=== PATIENT | female | born 1965 | race Caucasian/White ===

== ENCOUNTER 2019-05-16 04:09 | Emergency (ER) | payer OTHER ==
[~2019-05-16] VITALS: Ht 152.4 cm; Wt 82.1 kg
[2019-05-16 04:18] VITALS: BP 150/75
[2019-05-16] MEDS ORDERED: KETOROLAC 60 MG/2 ML VIAL IM ONE (04:35)
[2019-05-16] MEDS ORDERED: DICYCLOMINE HCL LIQUID 20 MG, ALUMINUM HYD/MAG/SIMETHICONE 30 ML, LIDOCAINE VISCOUS 2% ... PO ONE ×3 (04:35)
[2019-05-16] MEDS ORDERED: ONDANSETRON 4 MG TAB PO ONE (04:35)
[2019-05-16] MEDS ORDERED: MORPHINE SULFATE 4 MG/ML SYR IM ONE (05:30)
[2019-05-16 06:18] VITALS: BP 150/75
== END 2019-05-16 06:18 | disposition home or self-care (01) ==
LOC: MED 04:09
DX: R10.13 Epigastric pain (principal); R11.2 Nausea with vomiting, unspecified; Z98.890 Other specified postprocedural states
CPT/HCPCS: 81002; 81025; 96372; 99283; J1885; J2270; Q0162

== ENCOUNTER 2019-05-16 07:14 | Emergency (ER) | payer OTHER ==
[~2019-05-16] VITALS: Ht 152.4 cm; Wt 82.6 kg
[2019-05-16 07:22] VITALS: BP 130/86
[2019-05-16] MEDS ORDERED: KETOROLAC 30 MG/ML VIAL IVP ONE (08:20)
[2019-05-16 08:40] LABS: BASOPHILS % (AUTO) 0.3 % (0.0-2.0); EOSINOPHILS # (AUTO) 0.1 K/uL (0-0.4); EOSINOPHILS % (AUTO) 0.6 % (0.0-4.0); HEMATOCRIT 39.6 % (36-48); HEMOGLOBIN 13.1 g/dL (12.0-16.0); LYMPHOCYTES # (AUTO) 1.2 K/uL (2.5-16.5); LYMPHOCYTES % (AUTO) 11.5 % (20.5-51.1); MEAN CORPUSCULAR HEMOGLOBIN 30 pg (27-31); MEAN CORPUSCULAR HGB CONC 33 g/dL (33-37); MEAN CORPUSCULAR VOLUME 90.3 fL (80-94); MONOCYTES # (AUTO) 0.3 K/uL (0.8-1.0); NEUTROPHILS # (AUTO) 8.8 K/uL (1.8-7.7); NEUTROPHILS % (AUTO) 84.6 % (42.2-75.2); PLATELET COUNT (AUTO) 276 K/uL (140-450); RED BLOOD CELL COUNT(AUTO) 4.38 MIL/uL (4.20-5.40); RED CELL DISTRIBUTION WIDTH 13.5 % (11.6-13.7); WHITE BLOOD COUNT (AUTO) 10.4 K/uL (4.8-10.8)
[2019-05-16 08:46] LABS: ANION GAP 9.7 (8-16); CARBON DIOXIDE 30.5 mmol/L (21-32); CREATININE 0.7 mg/dL (0.6-1.3); POTASSIUM 4.2 mmol/L (3.5-5.1)
[2019-05-16 08:52] LABS: ALBUMIN 3.6 g/dL (3.4-5.0); TOTAL BILIRUBIN 0.4 mg/dL (0.0-1.0)
[2019-05-16 09:50] VITALS: BP 105/58
== END 2019-05-16 09:48 | disposition home or self-care (01) ==
LOC: MED 07:14
DX: K80.20 Calculus of gallbladder without cholecystitis without obstruction (principal)
CPT/HCPCS: 36415; 76705; 80053; 81002; 81025; 83690; 85025; 96374; 99284; J1885; Q0092

== ENCOUNTER 2020-04-09 19:25 | Inpatient (IN) | payer OTHER ==
[~2020-04-09] VITALS: Ht 149.9 cm; Wt 88.5 kg
[2020-04-09 20:03] VITALS: BP 148/81
[2020-04-09] MEDS ORDERED: KETOROLAC 30 MG/ML VIAL IM ONE (20:25)
[2020-04-09 20:41] LABS: BASOPHILS # (AUTO) 0.1 K/uL (0.00-0.22); BASOPHILS % (AUTO) 0.5 % (0.0-2.0); EOSINOPHILS # (AUTO) 0.4 K/uL (0-0.4); HEMATOCRIT 38.7 % (36-48); HEMOGLOBIN 12.6 g/dL (12.0-16.0); LYMPHOCYTES # (AUTO) 1.1 K/uL (2.5-16.5); LYMPHOCYTES % (AUTO) 8.6 % (20.5-51.1); MEAN CORPUSCULAR HEMOGLOBIN 30 pg (27-31); MEAN CORPUSCULAR HGB CONC 33 g/dL (33-37); MEAN CORPUSCULAR VOLUME 91.9 fL (80-94); MONOCYTES # (AUTO) 0.7 K/uL (0.8-1.0); MONOCYTES % (AUTO) 5.8 % (1.7-9.3); NEUTROPHILS # (AUTO) 10.5 K/uL (1.8-7.7); NEUTROPHILS % (AUTO) 82.1 % (42.2-75.2); PLATELET COUNT (AUTO) 254 K/uL (140-450); RED BLOOD CELL COUNT(AUTO) 4.21 MIL/uL (4.20-5.40); RED CELL DISTRIBUTION WIDTH 13.6 % (11.6-13.7); WHITE BLOOD COUNT (AUTO) 12.8 K/uL (4.8-10.8)
--- NOTE | 2020-04-09 20:53 | NUR ---
PT TAKEN TO ULTRASOUND
[2020-04-09 20:58] LABS: ALBUMIN 3.5 g/dL (3.4-5.0); ANION GAP 10.7 (8-16); CARBON DIOXIDE 29.3 mmol/L (21-32); CREATININE 0.8 mg/dL (0.6-1.3); TOTAL BILIRUBIN 0.8 mg/dL (0.0-1.0)
--- NOTE | 2020-04-09 21:00 | NUR ---
55F PT PRESENTS TO ED WITH C/O RUQ ABD PAIN THAT STARTED X 3 DAYS. PT REPORTS IT IS NON RADIATING AND 10/10 PAIN. UPON PALPATION, PT ABDOMEN SOFT AND NON TENDER. +PETERSON'S SIGN. DENIES N/V/D. DENIES SOB/COUGH. DENIES HEADACHE. RESPIRATIONS EVEN AND UNLABORED. CBL SOUNDS. A/O X4 AND AMBULATORY. PMHX: HLD, CHOLECYSTITIS RX: DENIES NKA
--- NOTE | 2020-04-09 21:00 | NUR ---
PT MEDICATED WITH TORADOL IM. TOLERATED WELL. NADR
--- NOTE | 2020-04-09 21:12 | NUR ---
PT RETURN FROM ULTRASOUND
--- NOTE | 2020-04-09 21:58 | NUR ---
Dr. Simpson examining patient.
[2020-04-09] MEDS ORDERED: KETOROLAC 15 MG/ML VIAL ONE ×2 (22:48→22:49)
--- NOTE | 2020-04-09 23:10 | NUR ---
PT REPORTS DECREASED PAIN FROM 10/10 TO 3/10 AND TOLERABLE. NO FURTHER NEEDS AT THIS TIME.
--- NOTE | 2020-04-10 00:25 | NUR ---
PT WILL BE ADMITTED TO TELEMETRY UNDER DR JAHAIRA DURAND.
--- NOTE | 2020-04-10 00:53 | NUR ---
PT IN BED SLEEPING. VISIBLE CHEST RISE AND FALL. NO FURTHER NEEDS AT THIS TIME. HOB ELEVATED . BED LOWEST AND LOCKED, RAILS X 2.
[2020-04-10] MEDS ORDERED: HYDROcodone/APAP 10/325 MG 1 TAB TAB PO ONE (01:55)
--- NOTE | 2020-04-10 02:24 | NUR ---
PT MADE AWARE THAT SHE WILL BE ADMITTED AND SHE VERBALIZES UNDERSTANDING. PT ALSO MADE AWARE AND AGREED.
[2020-04-10] MEDS ORDERED: NAPR-54 PO (02:28)
[2020-04-10] MEDS ORDERED: HYDR-5122 PO (02:28)
--- NOTE | 2020-04-10 03:14 | NUR ---
PT MOVED TO ER BED 11
--- NOTE | 2020-04-10 03:33 | NUR ---
PT PLACED ON CARDIAC MONITORING.
[2020-04-10] MEDS ORDERED: NACL 0.9% 1,000 ML IV ONE (05:15)
--- NOTE | 2020-04-10 05:15 | NUR ---
PT REPORTS FEELING OF DIZINESS 2/. ERMD MADE AWARE. ADVISED TO GIVE NS BOLUS.
--- NOTE | 2020-04-10 06:14 | NUR ---
PT IN BED SLEEPING WITH BOLUS RUNNING. NO FURTHER NEEDS AT THIS TIME. VISIBLE CHEST RISE AND FALL.
--- NOTE | 2020-04-10 07:12 | NUR ---
PT AMBULATED TO RESTROOM WITH STEADY GAIT
--- NOTE | 2020-04-10 07:34 | NUR ---
Patient will be admitted to care of DR. RENTERIA. Admited to TELE. Will go to room 111. Belongings list completed. Report to ALICIA POE.
[2020-04-10 07:35] VITALS: BP 120/83
--- NOTE | 2020-04-10 07:35 | NUR ---
RECEIVED REPORT FROM ER NURSE. PT RESTING IN BED, AOX4- LEBANESE/TAMAZIGHT SPEAKING. ON ROOM AIR WITH RIGHT AC #18G/SL. PT ARRIVED VIA GURNEY. DISCUSSED PLAN OF CARE AND PT VERBALIZED UNDERSTANDING. MRSA NARES COLLECTED. CALL LIGHT WITHIN REACH. NO S/S OF RESPIRATORY DISTRESS OR DISCOMFORT NOTED AT THIS TIME. WILL CONTINUE TO MONITOR.
[2020-04-10] MEDS ORDERED: MORPHINE SULFATE 2 MG/ML SYR IVP PRN (08:15)
[2020-04-10] MEDS ORDERED: ACETAMINOPHEN 325 MG TAB PO PRN (08:15)
[2020-04-10] MEDS: MORPHINE SULFATE 2 MG/ML SYR IVP PRN ×3 (08:39→19:05)
--- NOTE | 2020-04-10 08:39 | NUR ---
PT C/O PAIN 10/10 AND MORPHINE GIVEN AND TOLERATED WELL. PT ALSO C/O NAUSEA AND ZOFRAN GIVEN. CALL LIGHT WITHIN REACH. NO S/S OF RESPIRATORY DISTRESS OR DISCOMFORT NOTED AT THIS TIME. WILL CONTINUE TO MONITOR.
[2020-04-10] MEDS: ONDANSETRON 4 MG/2 ML VIAL IVP PRN ×2 (08:40→16:18)
--- NOTE | 2020-04-10 09:23 | NUR ---
PATIENT HAS BEEN SCREENED AND CATEGORIZED MODERATE NUTRITION RISK. PATIENT WILL BE SEEN WITHIN 3-5 DAYS OF ADMISSION. 04/12/20 04/14/[address]
[2020-04-10] MEDS: HYDROcodone/APAP 5/325 MG 1 TAB TAB PO PRN ×3 (09:57→22:51)
--- NOTE | 2020-04-10 09:57 | NUR ---
PT CONTINUES TO C/O PAIN AND NORCO GIVEN. PT TOLERATED WELL. CALL LIGHT WITHIN REACH. NO S/S OF RESPIRATORY DISTRESS OR DISCOMFORT NOTED AT THIS TIME. WILL CONTINUE TO MONITOR.
--- NOTE | 2020-04-10 10:43 | NUR ---
DC PLANN[age] YRS OLD FEMALE PATIENT WAS ADMITTED FROM HOME WITH A DX OF ABDOMINAL PAIN. PT HAS A HX OF GALL STONES. ULTRA SOUND GALLBLADDER SHOWED CHOLELITHIASIS SUSPICIOUS FOR ACUTE CHOLECYSTITIS. ADMINISTER IVF , MORPHINE IV FOR PAIN. CONSULT WITH SURGEON. DC PLAN PER MD'S RECOMMENDATIONS. CM TO FOLLOW. Addendum: 04/11/20 at 1146 by Rafaela Munoz CM FOR LAP NILS TODAY WITH DR POLLARD AT 1400. ON ZOSYN. Addendum: 04/12/20 at 1136 by Rafaela Munoz CM S/P LAP NILS WITH ROSANNA DRAIN 04/11/[address] PONCE. CURRENT LABS INCLUDE WBC 17.9, H/H 11.1/34.2, NA/K 141/4.0, BUN/CREA 13/0.7. ON ZOSYN. ON FULL LIQUID DIET. Addendum: 04/12/20 at 1448 by Ladi iLu CM SPOKE WITH RAMSEY AT PATIENTS PCP OFFICE. SCHEDULED A FOLLOW UP APPT ON Friday AT 12:[address] ANDREW. [address] [facility] [address] [phone]. WILL LEAVE AN APPOINTMENT REMINDER IN PATIENTS CHART AND NOTIFY RN Addendum: 04/13/20 at 1241 by Rafaela Munoz CM DOWNGRADED TO MS STATUS YESTERDAY 04/12 AT 1555. ON FULL LIQUID DIET. WBC TRENDING DOWN TO 12.9. ABLE TO AMBULATE. STILL ON ZOSYN. STILL WITH ON AND OFF PAIN PER DOCUMENTATION. FOR POSSIBLE DC HOME TODAY PENDING DOCTOR'S ORDER.
--- NOTE | 2020-04-10 12:00 | NUR ---
PT SLEEPING. CALL LIGHT WITHIN REACH. NO S/S OF RESPIRATORY DISTRESS OR DISCOMFORT NOTED AT THIS TIME. WILL CONTINUE TO MONITOR.
--- NOTE | 2020-04-10 13:43 | NUR ---
PT C/O PAIN AND MORPHINE GIVEN. PT TOLERATED WELL. CALL LIGHT WITHIN REACH. NO S/S OF RESPIRATORY DISTRESS OR DISCOMFORT NOTED AT THIS TIME. WILL CONTINUE TO MONITOR.
[2020-04-10 16:00] VITALS: BP 130/62
--- NOTE | 2020-04-10 16:18 | NUR ---
PT C/O PAIN AND NAUSEA. NORCO AND ZOFRAN GIVEN AND TOLERATED WELL. CALL LIGHT WITHIN REACH. NO S/S OF RESPIRATORY DISTRESS OR DISCOMFORT NOTED AT THIS TIME. WILL CONTINUE TO MONITOR.
--- NOTE | 2020-04-10 18:00 | NUR ---
PT SLEEPING IN BED. CALL LIGHT WITHIN REACH. NO S/S OF RESPIRATORY DISTRESS OR DISCOMFORT NOTED AT THIS TIME. WILL CONTINUE TO MONITOR.
--- NOTE | 2020-04-10 19:05 | NUR ---
PT C/O PAIN 10/10 AND MEDICATED WITH MORPHINE. WILL HAVE MANAGER QUALITY SYSTEMS NURSE RE-ASSESS PAIN IN ONE HOUR. CALL LIGHT WITHIN REACH. NO S/S OF RESPIRATORY DISTRESS OR DISCOMFORT NOTED AT THIS TIME. WILL CONTINUE TO MONITOR.
--- NOTE | 2020-04-10 19:18 | NUR ---
RECEIVED PT AAOX4 , NID , C/O BEARBLE ABDL. PAIN - SOFT ABD. IV SITE INTACT AND PATENT , NO S/SX OF ACUTE DISTRESS NOTED . PLAN OF CARE DISCUSSED AND VERBALIZED UNDERSTANDING , SAFETY MEASURES IN PLACE - CALL LIGHT WITHIN REACH . NPO , ON TELE MONITOR.
[2020-04-10 20:00] VITALS: BP 115/65
--- NOTE | 2020-04-10 22:00 | NUR ---
MADE ROUNDS , NO S/SX OF ACUTE DISTRESS NOTED
[2020-04-11] VITALS: BP 120/82
--- NOTE | 2020-04-11 | NUR ---
MADE ROUNDS . NO S/SX OF ACUTE DISTRESS NOTED
--- NOTE | 2020-04-11 02:00 | NUR ---
MADE ROUNDS , NO S/SX OF ACUTE DISTRESS NOTED .
[2020-04-11] MEDS: ONDANSETRON 4 MG/2 ML VIAL IVP PRN ×2 (02:14→08:39)
[2020-04-11] MEDS: MORPHINE SULFATE 2 MG/ML SYR IVP PRN ×3 (02:14→21:44)
[2020-04-11 04:00] VITALS: BP 118/69
--- NOTE | 2020-04-11 04:00 | NUR ---
MADE ROUNDS , C/O ABDL . PAIN - BEARABLE SHE SAID - JUST MEDICATED - WILL CONT. TO MONITOR - SOFT ABD.
[2020-04-11] MEDS ORDERED: PIPERACILLIN/TAZOBACTAM 3.375 GM VIAL IV ONE ×2 (04:29→13:18)
[2020-04-11] MEDS: PIPERACILLIN/TAZOBACTAM 3.375 GM in DEXTROSE 5% 50 ML IV SCH ×3 (04:36→21:44)
[2020-04-11 07:07] LABS: BASOPHILS # (AUTO) 0.2 K/uL (0.00-0.22); BASOPHILS % (AUTO) 0.7 % (0.0-2.0); EOSINOPHILS # (AUTO) 0.1 K/uL (0-0.4); EOSINOPHILS % (AUTO) 0.2 % (0.0-4.0); HEMATOCRIT 41.1 % (36-48); HEMOGLOBIN 13.2 g/dL (12.0-16.0); LYMPHOCYTES % (AUTO) 4.1 % (20.5-51.1); MEAN CORPUSCULAR HEMOGLOBIN 30 pg (27-31); MEAN CORPUSCULAR HGB CONC 32 g/dL (33-37); MEAN CORPUSCULAR VOLUME 92.6 fL (80-94); MONOCYTES # (AUTO) 1.1 K/uL (0.8-1.0); MONOCYTES % (AUTO) 4.6 % (1.7-9.3); NEUTROPHILS # (AUTO) 22.2 K/uL (1.8-7.7); NEUTROPHILS % (AUTO) 90.4 % (42.2-75.2); PLATELET COUNT (AUTO) 268 K/uL (140-450); RED BLOOD CELL COUNT(AUTO) 4.44 MIL/uL (4.20-5.40); RED CELL DISTRIBUTION WIDTH 13.9 % (11.6-13.7); WHITE BLOOD COUNT (AUTO) 24.5 K/uL (4.8-10.8)
[2020-04-11 07:16] LABS: ALBUMIN 3.1 g/dL (3.4-5.0); CARBON DIOXIDE 29.5 mmol/L (21-32); CREATININE 0.9 mg/dL (0.6-1.3); POTASSIUM 3.5 mmol/L (3.5-5.1); TOTAL BILIRUBIN 1.1 mg/dL (0.0-1.0)
--- NOTE | 2020-04-11 07:20 | NUR ---
RECEIVED REPORT FROM NIGHT NURSE FOR CONTINUITY OF CARE, PT IS STABLE, NO SIGNS OF DISTRESS NOTED, RESPIRATIONS ARE EVEN AND UNLABORED ON ROOM AIR, PT HAS RIGHT AC 18G INFUSING NORMAL SALINE TKO, PT IS AMBULATORY, BED IN LOW POSITION, SAFETY MEASURES IN PLACE, CALL LIGHT WITHIN REACH.
--- NOTE | 2020-04-11 07:20 | NUR ---
ENDORSED TO AM SHIFT - PT - STABLE .
[2020-04-11 08:00] VITALS: BP 116/65
--- NOTE | 2020-04-11 08:30 | NUR ---
RECEIVED TORB FOR CT ABD/PELVIS STAT FOR PT FROM DR PONCE, PT WILL BE SCHEDULED FOR SURGERY TODAY. ORDERED TO KEEP PT NPO
--- NOTE | 2020-04-11 08:43 | NUR ---
ADMINISTERED ZOFRAN FOR NAUSEA AND MORPHINE FOR PAIN OF 9/10 SHARP ABDOMINAL PAIN, MEDICATION EDUCATION GIVEN, PT VERBALIZED UNDERSTANDING, PT TOLERATED WELL, PT IS STABLE, CALL LIGHT WITHIN REACH.
[2020-04-11] MEDS: HYDROcodone/APAP 5/325 MG 1 TAB TAB PO PRN (11:00)
--- NOTE | 2020-04-11 11:02 | NUR ---
ADMINISTERED NORCO FOR PAIN 6/10 FOR ABDOMINAL PAIN, MEDICATION EDUCATION GIVEN, PT VERBALIZED UNDERSTANDING, PT TOLERATED WELL, PT IS STABLE, CALL LIGHT WITHIN REACH.
[2020-04-11 12:00] VITALS: BP 108/57
[2020-04-11] MEDS ORDERED: diphenhydrAMINE 50 MG/ML VIAL IVP PRN (13:00)
[2020-04-11] MEDS ORDERED: ONDANSETRON 4 MG/2 ML VIAL IVP PRN (13:00)
--- NOTE | 2020-04-11 13:01 | NUR ---
PT OFF UNIT FOR SURGERY
[2020-04-11] MEDS ORDERED: SUGAMMADEX SODIUM 200 MG/2 ML VIAL IV ONE (13:46)
[2020-04-11] MEDS ORDERED: ROCURONIUM 50 MG/5 ML VIAL IV ONE (13:46)
[2020-04-11] MEDS ORDERED: ONDANSETRON 4 MG/2 ML VIAL ONE (13:46)
[2020-04-11] MEDS ORDERED: DESFLURANE 240 ML BTL INH ONE (13:46)
[2020-04-11] MEDS ORDERED: NEOSTIGMINE 1:1000 10 MG/10 ML VIAL ONE (13:46)
[2020-04-11] MEDS ORDERED: ePHEDrine 50 MG/ML VIAL ONE (13:46)
[2020-04-11] MEDS ORDERED: PROPOFOL 200 MG/20 ML VIAL IV ONE (13:46)
[2020-04-11] MEDS ORDERED: SUCCINYLCHOLINE CHLORIDE 200 MG/10 ML VIAL IVP ONE (13:46)
[2020-04-11] MEDS ORDERED: DEXAMETHASONE 4 MG/ML VIAL ONE (13:46)
[2020-04-11] MEDS: BUPIVACAINE-MPF/EPI 0.25% 30 ML VIAL INJ ONE ×2 (14:21→16:35)
[2020-04-11] MEDS ORDERED: ONDANSETRON 4 MG/2 ML VIAL IV PRN (16:25)
[2020-04-11] MEDS ORDERED: HYDROcodone/APAP 5/325 MG 1 TAB TAB PO PRN (16:25)
[2020-04-11] MEDS ORDERED: ACETAMINOPHEN 325 MG TAB PO PRN (16:25)
[2020-04-11] MEDS: HYDROmorphone 1 MG/ML AMP IVP PRN ×5 (16:30→17:56)
[2020-04-11] MEDS ORDERED: HYDROmorphone PFS 2 MG/ML SYR ONE (16:33)
[2020-04-11] MEDS ORDERED: MEPERIDINE 50 MG/ML SYR ONE (17:04)
[2020-04-11] MEDS: MEPERIDINE 25 MG/ML SYR IVP PRN ×2 (17:05→17:15)
--- NOTE | 2020-04-11 17:20 | NUR ---
PT BACK FROM OR S/P LAP TRE, 3 BANDAGES ON ABD, ROSANNA DRAIN IN PLACE, FLORENTINO CATH IN PLACE, PT IS STABLE, RESPIRATIONS ARE EVEN AND UNLABORED ON ROOM AIR, CALL LIGHT WITHIN REACH.
--- NOTE | 2020-04-11 17:56 | NUR ---
ADMINISTERED DILAUDID FOR PAIN OF 8/10, PT STATES THE PAIN IS FROM THE SURGERY, MEDICATION EDUCATION GIVEN, PT TOLERATED WELL, PT IS STABLE, CALL LIGHT WITHIN REACH
--- NOTE | 2020-04-11 19:10 | NUR ---
ENDORSE PT TO NIGHT NURSE FOR CONTINUITY OF CARE, PT STABLE
--- NOTE | 2020-04-11 19:10 | NUR ---
RECEIVED REPORT FROM AM SHIFT NURSE FOR CONTINUITY OF CARE. PATIENT IS ON ROOM AIR WITH 02 SAT AT 97%. SHE HAS A FLORENTINO CATHETER IN PLACE AND A ROSANNA DRAIN IN PLACE WITH BANDAGE IN PLACE. PATIENT IS ALERT AND ORIENTED X4. SHE HAS VOICED SLIGHT DISCOMFORT TO ABDOMEN INCISION SITE BUT STATES IT IS TOLERABLE AT THIS TIME. PATIENT WILL CONTINUE TO BE MONITORED. CALL LIGHT WITHIN REACH AND BED IN LOW POSITION. RESP EVEN AND UNLABORED AT THIS TIME.
--- NOTE | 2020-04-11 19:11 | NUR ---
RECD. RESTING IN BED, AWAKE, A/OX4. RESPIRATION EVEN AND UNLABORED. IV OF NS INFUSING AT TKO, RIGHT AC G18. S/P LAP CHOLECYSTECTOMY, INCISION IN THE ABDOMEN (4), 2 WITH BAND AID, 2 DERMA DIAL, OPEN TO AIR. 1 ROSANNA DRESSING DRAINING SEROSANGUINEOUS FLUID MINIMAL AMOUNT. F/C PATENT DRAINING CLEAR YELLOW URINE. PAIN IN THE ABDOMEN 10/22, TOLERABLE. WILL BE MEDICATED PER MD ORDER. NPO AT THIS TIME. PLAN OF CARE FOR THE SHIFT DISCUSSED. VERBALIZED UNDERSTANDING.
--- NOTE | 2020-04-11 21:00 | NUR ---
STILL AWAKE, WATCHING TV. NPO, SMALL AMOUNT OF ICE CHIPS GIVEN TO MOISTEN LIPS.
[2020-04-11 21:41] VITALS: BP 119/65
--- NOTE | 2020-04-12 | NUR ---
TOLERATED ALL ANTIBIOTICS GIVEN BY RN. VS REMAIN STABLE.
[2020-04-12 00:50] VITALS: BP 110/65
[2020-04-12] MEDS: HYDROmorphone 1 MG/ML AMP IVP PRN (01:10)
[2020-04-12] MEDS: ONDANSETRON 4 MG/2 ML VIAL IVP PRN ×2 (01:11→09:16)
--- NOTE | 2020-04-12 01:11 | NUR ---
NAUSEATED, MEDICATED WITH ZOFRAN PER MD ORDER BY LUI CONNER.
--- NOTE | 2020-04-12 01:45 | NUR ---
NO NAUSEA NOTED, SLEEPING COMFORTABLY IN BED.
[2020-04-12 04:00] VITALS: BP 112/56
[2020-04-12] MEDS: HYDROcodone/APAP 5/325 MG 1 TAB TAB PO PRN ×3 (05:35→23:34)
[2020-04-12] MEDS: PIPERACILLIN/TAZOBACTAM 3.375 GM in DEXTROSE 5% 50 ML IV SCH ×3 (05:56→20:18)
--- NOTE | 2020-04-12 06:00 | NUR ---
IV INFILTRATED, WILL INSERT NEW IV LINE.
[2020-04-12 06:23] LABS: HEMATOCRIT 34.2 % (36-48); HEMOGLOBIN 11.1 g/dL (12.0-16.0); MEAN CORPUSCULAR HEMOGLOBIN 30 pg (27-31); MEAN CORPUSCULAR HGB CONC 33 g/dL (33-37); MEAN CORPUSCULAR VOLUME 92.8 fL (80-94); PLATELET COUNT (AUTO) 259 K/uL (140-450); RED BLOOD CELL COUNT(AUTO) 3.68 MIL/uL (4.20-5.40); RED CELL DISTRIBUTION WIDTH 13.7 % (11.6-13.7); WHITE BLOOD COUNT (AUTO) 17.9 K/uL (4.8-10.8)
[2020-04-12 06:52] LABS: ALBUMIN 2.5 g/dL (3.4-5.0); ANION GAP 12.5 (8-16); CARBON DIOXIDE 28.5 mmol/L (21-32); CREATININE 0.7 mg/dL (0.6-1.3); TOTAL BILIRUBIN 0.5 mg/dL (0.0-1.0)
--- NOTE | 2020-04-12 07:00 | NUR ---
CONDITION REMAIN STABLE, WILL ENDORSE TO AM SHIFT NURSE FOR CONTINUITY OF CARE.
--- NOTE | 2020-04-12 07:51 | NUR ---
RECEIVED REPORT FROM PROOF TECHNICIAN HELPER NURSE. PT IS IN BED. AOX4, SERBIAN SPEAKING, NO C/O PAIN, NO SOB, RESPIRATIONS ARE EVEN AND UNLABORED. ON ROOM AIR. SKIN IS INTACT. ROSANNA DRAIN IS INTACT WITH SEROSANGUINEOUS FLUID. SAFETY PRECAUTIONS IN PLACE. CALL LIGHT WITHIN REACH. WILL CONTINUE TO MONITOR.
[2020-04-12 08:00] VITALS: BP 114/58
[2020-04-12] MEDS: ENOXAPARIN 40 MG/0.4 ML SYR SUBQ SCH (09:16)
[2020-04-12] MEDS: MORPHINE SULFATE 2 MG/ML SYR IVP PRN ×3 (09:16→19:53)
[2020-04-12 09:20] LABS: LYMPHOCYTES % (MANUAL) 7 % (20-46); MONOCYTES % (MANUAL) 4 % (5-12)
--- NOTE | 2020-04-12 09:50 | NUR ---
RECEIVED REPORT FROM DAY SHIFT NURSE KATE-LUI. PT RESTING IN BED, AOX4- FRENCH SPEAKING, ON ROOM AIR WITH RIGHT HAND #24 RUNNING NS @10ML/HR. S/P LAP NILS 04/[address] DANIEL MARTE DRAIN IN PLACE. DISCUSSED PLAN OF CARE AND PT VERBALIZED UNDERSTANDING. CALL LIGHT WITHIN REACH. NO S/S OF RESPIRATORY DISTRESS OR DISCOMFORT NOTED AT THIS TIME. WILL CONTINUE TO MONITOR.
--- NOTE | 2020-04-12 09:50 | NUR ---
GAVE REPORT TO NURSE ALICIA FOR CONTINUITY OF CARE. IN STABLE CONDITION
--- NOTE | 2020-04-12 12:00 | NUR ---
PT RESTING IN BED. ASSISTED PT WITH THE BATHROOM. AMBULATED WITH ASSISTANCE. PT TOLERATED WELL. CALL LIGHT WITHIN REACH. NO S/S OF RESPIRATORY DISTRESS OR DISCOMFORT NOTED AT THIS TIME. WILL CONTINUE TO MONITOR.
--- NOTE | 2020-04-12 13:10 | NUR ---
SCHEDULED MEDICATION ZOSYN GIVEN AND TOLERATED WELL. PT C/O PAIN 10/10 AND MORPHINE WAS GIVEN. PT TOLERATED WELL. REMOVED FLORENTINO CATHETER WITH 400ML OUTPUT. PT TOLERATED WELL. CALL LIGHT WITHIN REACH. NO S/S OF RESPIRATORY DISTRESS OR DISCOMFORT NOTED AT THIS TIME. WILL CONTINUE TO MONITOR.
--- NOTE | 2020-04-12 15:00 | NUR ---
PT RESTING IN BED. CALL LIGHT WITHIN REACH. NO S/S OF RESPIRATORY DISTRESS OR DISCOMFORT NOTED AT THIS TIME. WILL CONTINUE TO MONITOR.
[2020-04-12 16:00] VITALS: BP 117/60
--- NOTE | 2020-04-12 17:00 | NUR ---
PT RESTING IN BED. CALL LIGHT WITHIN REACH. NO S/S OF RESPIRATORY DISTRESS OR DISCOMFORT NOTED AT THIS TIME. WILL CONTINUE TO MONITOR.
--- NOTE | 2020-04-12 19:24 | NUR ---
REPORT GIVEN TO TON FOR CONTINUITY OF CARE. PT STABLE AT THIS TIME.
--- NOTE | 2020-04-12 19:25 | NUR ---
RECD. RESTING IN BED, AWAKE, A/OX4. RESPIRATION EVEN AND UNLABORED. IV OF NS AT TKO INFUSING RIGHT HAND G24. INCISION IN THE ABDOMEN (4), ALL DRY AND INTACT, WITH 1 ROSANNA DRAINING SEROSANGUINEOUS FLUID, MINIMAL AMOUNT. ON FULL LIQUID DIET BUT STATED SHE PREFERS CLEAR LIQUID BECAUSE THE FULL LIQUID DIET MAKES HER FEEL FULLNESS INSIDE HIS STOMACH. VOIDING WELL. PAIN IN THE ABDOMEN 10/22, STATED TOLERABLE. PLAN OF CARE FOR THE SHIFT DISCUSSED. VERBALIZED UNDERSTANDING.
[2020-04-12 19:44] VITALS: BP 123/70
--- NOTE | 2020-04-12 20:00 | NUR ---
WITNESSED WASTING OF MORPHINE FOR PT WITH PA CASTER INVESTMENT CASTING NURSE.
--- NOTE | 2020-04-12 20:32 | NUR ---
WHILE GIVING PATIENT PRN MORPHINE MEDICATION, WHILE TAKING CAP OFF, THE PLUNGER WAS PUSHED AND HALF OF THE MEDICATION IS WASTED. WASTED THE REMAINING HALF WITH PRECEPTOR LUI SOLORIO. PULLED A NEW VIAL TO GIVE PATIENT THE FULL PRN MEDICATED DOSE.
--- NOTE | 2020-04-12 21:30 | NUR ---
DISCUSSED CARE PLAN WITH ALBA LEDESMA
--- NOTE | 2020-04-12 23:30 | NUR ---
WANTS PAIN MEDICATION, NORCO GIVEN INSTEAD OF MORPHINE. EXPLAINED WHEN SHE GOES HOME, IT WOULD BE EASY FOR HER IF SHE IS NOT ALWAYS GETTING MORPHINE FOR PAIN WHILE IN THE HOSPITAL.
[2020-04-13] VITALS: BP 102/65
--- NOTE | 2020-04-13 02:30 | NUR ---
ASSISTED TO GO OUT OF BED TO GO TO THE BR. STATED SHE VOIDED A LOT. BACK TO BED AFTER VOIDING. NOT YET PASSING GAS AND NO BM YET. ENCOURAGED TO AMBULATE MORE FOR EASY RECOVERY.
[2020-04-13 02:46] VITALS: BP 116/54
[2020-04-13] MEDS: MORPHINE SULFATE 2 MG/ML SYR IVP PRN ×2 (02:54→07:47)
--- NOTE | 2020-04-13 03:00 | NUR ---
STILL SLEEPING COMFORTABLY IN BED.
[2020-04-13] MEDS: PIPERACILLIN/TAZOBACTAM 3.375 GM in DEXTROSE 5% 50 ML IV SCH ×2 (05:02→12:38)
--- NOTE | 2020-04-13 06:00 | NUR ---
CONDITION REMAIN STABLE.COMPLAINT OF ABDOMINAL PAIN ATTENDED PROMPTLY, MEDICATED ORDERED.
[2020-04-13 06:22] LABS: BASOPHILS % (AUTO) 0.3 % (0.0-2.0); EOSINOPHILS # (AUTO) 0.5 K/uL (0-0.4); EOSINOPHILS % (AUTO) 4.1 % (0.0-4.0); HEMATOCRIT 32.5 % (36-48); HEMOGLOBIN 10.6 g/dL (12.0-16.0); LYMPHOCYTES # (AUTO) 1.6 K/uL (2.5-16.5); LYMPHOCYTES % (AUTO) 12.8 % (20.5-51.1); MEAN CORPUSCULAR HEMOGLOBIN 30 pg (27-31); MEAN CORPUSCULAR HGB CONC 33 g/dL (33-37); MEAN CORPUSCULAR VOLUME 92.6 fL (80-94); MONOCYTES # (AUTO) 0.8 K/uL (0.8-1.0); MONOCYTES % (AUTO) 5.9 % (1.7-9.3); NEUTROPHILS # (AUTO) 9.9 K/uL (1.8-7.7); NEUTROPHILS % (AUTO) 76.9 % (42.2-75.2); PLATELET COUNT (AUTO) 296 K/uL (140-450); RED BLOOD CELL COUNT(AUTO) 3.51 MIL/uL (4.20-5.40); RED CELL DISTRIBUTION WIDTH 13.8 % (11.6-13.7); WHITE BLOOD COUNT (AUTO) 12.9 K/uL (4.8-10.8)
[2020-04-13 07:13] LABS: ALBUMIN 2.2 g/dL (3.4-5.0); CARBON DIOXIDE 30.7 mmol/L (21-32); CREATININE 0.7 mg/dL (0.6-1.3); POTASSIUM 3.7 mmol/L (3.5-5.1); TOTAL BILIRUBIN 0.4 mg/dL (0.0-1.0)
--- NOTE | 2020-04-13 07:25 | NUR ---
ENDORSED TO AM SHIFT NURSE FOR CONTINUITY OF CARE.
--- NOTE | 2020-04-13 07:25 | NUR ---
RECEIVED PATIENT FROM RESTAURANT CULINARY MANAGER NURSE, ALBA, FOR CONTINUITY OF CARE. AAOX4, PATIENT COMPLAINS OF PAIN 10/10 FROM SURGICAL INCISION. WILL MEDICATE. RESPIRATION EVEN AND UNLABORED, WITH O2 AT 2LPM VIA NC. IV OF NS AT TKO INFUSING RIGHT HAND G24. INCISION IN THE ABDOMEN (4), ALL DRY AND INTACT, WITH 1 ROSANNA DRAINING SEROSANGUINEOUS FLUID, MINIMAL AMOUNT. ON FULL LIQUID DIET BUT STATED SHE PREFERS CLEAR LIQUID BECAUSE THE FULL LIQUID DIET MAKES HER FEEL FULLNESS INSIDE HIS STOMACH. VOIDING WELL. PAIN IN THE ABDOMEN 1/10, STATED TOLERABLE. PLAN OF CARE FOR THE SHIFT DISCUSSED. VERBALIZED UNDERSTANDING. CALL LIGHT WITHIN REACH. WILL CONTINUE TO MONITOR.
--- NOTE | 2020-04-13 07:47 | NUR ---
MEDICATED PATIENT WITH MORPHINE 2MG FOR INCISION PAIN 10/. PATIENT IS VISIBLY MOANING AND GUARDING. V/S TAKEN AND IS WNL. BP 133/71, HR 75. WILL CONTINUE TO MONITOR.
[2020-04-13 08:00] VITALS: BP 133/71
[2020-04-13] MEDS ORDERED: SIMETHICONE 40 MG/0.6 ML PO PRN (08:30)
--- NOTE | 2020-04-13 08:30 | NUR ---
PATIENT REQUESTS MEDICATION FOR GAS. ENCOURAGED PATIENT TO AMBULATE AND PERFORM DEEP BREATHING TO PASS GAS. PATIENT UNDERSTANDS BUT IS HESITANT TO MOVE D/T PAIN. EXPLAINED THAT PAIN MEDICATION IS ALREADY GIVEN. PATIENT AGREES TO AMBULATE AFTER AN HOUR.
[2020-04-13] MEDS ORDERED: SIMETHICONE 80 MG TAB.CHEW PO SCH (09:00)
[2020-04-13] MEDS: ENOXAPARIN 40 MG/0.4 ML SYR SUBQ SCH (09:11)
--- NOTE | 2020-04-13 09:15 | NUR ---
MORNING MEDICATIONS GIVEN. PATIENT IS SEEMS TO BE MORE RELAXED. NO SIGNS OF DISTRESS. WILL CONTINUE TO MONITOR.
--- NOTE | 2020-04-13 09:30 | NUR ---
AMBULATED PATIENT OUT OF PATIENT'S ROOM. PATIENT IS IN SEVERE DISCOMFORT AND WAS ABLE TO AMBULATE FOR 5 FEET. WILL MEDICATE WITH PAIN. WILL CONTINUE TO MONITOR.
[2020-04-13 12:00] VITALS: BP 137/76
--- NOTE | 2020-04-13 14:02 | NUR ---
DR. PONCE BY THE BEDSIDE, ROSANNA DRAINAGE REMOVED, 5ML OUTPUT WITH SEROSANGUINOUS DISCHARGE. NO SIGNS OF DISTRESS NOTED. WILL CONTINUE TO MONITOR.
[2020-04-13] MEDS ORDERED: CIPR500T4 PO (14:25)
[2020-04-13] MEDS ORDERED: METR250T2 PO (14:25)
[2020-04-13] MEDS ORDERED: ACET-9525 PO (14:25)
--- NOTE | 2020-04-13 15:01 | NUR ---
04/13/20 RD INITIAL ASSESSMENT COMPLETED PLEASE REFER TO NUTRITION ASSESSMENT UNDER CARE ACTIVITY FOR ESTIMATED NUTRITIONAL NEEDS. 1. CONTINUE FULL LIQUID DIET TOLERATED 2. RECOMMEND ENSURE CLEAR TID 3. ADVANCE TO BRAT OR BLAND DIET GRADUALLY 4. RD TO FOLLOW-UP 3-5 DAYS, MODERATE RISK MICHAEL MONTEZ, RD
[2020-04-13 15:04] VITALS: BP 137/76
--- NOTE | 2020-04-13 15:20 | NUR ---
IV SITE AND ARMBANDS REMOVED. DISCHARGE INSTRUCTIONS AND HANDOUTS GIVEN, PATIENT VERBALIZES UNDERSTANDING. ATTEMPTED TO TAKE DISCHARGE PICTURES OF SURGICAL INCISION BUT PATIENT REFUSED STATING WANTING TO LEAVE IMMEDIATELY. WILL CONTINUE TO MONITOR.
--- NOTE | 2020-04-13 15:40 | NUR ---
PATIENT IS DISCHARGED TO HOME WITH SPOUSE. NO SIGNS OF DISTRESS NOTED, PATIENT ABLE TO AMBULATE FDC BUT IS WHEELED TOWARDS LOBBY DUE TO FATIGUE. IV SITE AND ARMBANDS REMOVED. DISCHARGE TEACHINGS AND INSTRUCTIONS GIVEN. DISCHARGE HANDOUTS AND PRESCRIPTIONS GIVEN WELL. PATIENT VERBALIZES UNDERSTANDING.
== END 2020-04-13 15:35 | disposition home or self-care (01) | DRG 263 ==
LOC: MED 19:25 → MTU 04-10 00:02 → MMU 04-11 11:15
PROVIDERS: ADMIT Internal Medicine Pulmonary Disease; ATTEND Internal Medicine Pulmonary Disease
PROC: 0F9040Z Drainage of Liver with Drainage Device, Percutaneous Endoscopic Approach (ICD-10-PCS; 2020-04-11)
PROC: BF131ZZ Fluoroscopy of Gallbladder and Bile Ducts using Low Osmolar Contrast (ICD-10-PCS; 2020-04-11)
PROC: 0FT44ZZ Resection of Gallbladder, Percutaneous Endoscopic Approach (ICD-10-PCS; principal; 2020-04-11 14:00)
DX: K80.00 Calculus of gallbladder with acute cholecystitis without obstruction (principal); K65.9 Peritonitis, unspecified; B02.9 Zoster without complications; E66.9 Obesity, unspecified; Z79.899 Other long term (current) drug therapy; Z68.39 Body mass index [BMI] 39.0-39.9, adult; R65.10 Systemic inflammatory response syndrome (SIRS) of non-infectious origin without acute organ dysfunction
CPT/HCPCS: 36415; 71045; 76705; 80053; 81025; 82374; 83690; 85025; 87081; 88304; 93005; 96360; 96372; 99285; C1887; J0330; J1100; J1170; J1650; J1885; J2175; J2270; J2405; J2543; J2704; J2710; J3490; J7030; J7060; Q0092

== ENCOUNTER 2022-11-09 18:14 | Emergency (ER) | payer OTHER ==
[~2022-11-09] VITALS: Ht 149.9 cm; Wt 102.5 kg
[~2022-11-09 18:14] MED LIST: ACET-9525 PO; CIPR500T4 PO; HYDR-5122 PO; METR-520 PO
[2022-11-09 18:44] VITALS: BP 154/108
--- NOTE | 2022-11-09 21:56 | NUR ---
PT AMBULATED TO BED #2
--- NOTE | 2022-11-09 22:00 | NUR ---
Patient resting in bed, A/Ox4, chest rise and fall symmetrical, no c/o pain or s/s of distress, patient on monitor
--- NOTE | 2022-11-09 23:00 | NUR ---
Patient resting in bed, A/Ox4, chest rise and fall symmetrical, no c/o pain or s/s of distress, patient on monitor
[2022-11-09 23:06] LABS: BASOPHILS # (AUTO) 0.1 K/uL (0.00-0.22); BASOPHILS % (AUTO) 0.6 % (0.0-2.0); EOSINOPHILS # (AUTO) 0.6 K/uL (0-0.4); EOSINOPHILS % (AUTO) 5.7 % (0.0-4.0); HEMATOCRIT 38.6 % (36-48); HEMOGLOBIN 12.8 g/dL (12.0-16.0); LYMPHOCYTES # (AUTO) 3.1 K/uL (2.5-16.5); MEAN CORPUSCULAR HEMOGLOBIN 29 pg (27-31); MEAN CORPUSCULAR HGB CONC 33 g/dL (33-37); MEAN CORPUSCULAR VOLUME 88.4 fL (80-94); MONOCYTES # (AUTO) 0.6 K/uL (0.8-1.0); MONOCYTES % (AUTO) 6.2 % (1.7-9.3); NEUTROPHILS # (AUTO) 5.9 K/uL (1.8-7.7); NEUTROPHILS % (AUTO) 57.5 % (42.2-75.2); PLATELET COUNT (AUTO) 323 K/uL (140-450); RED BLOOD CELL COUNT(AUTO) 4.37 MIL/uL (4.20-5.40); RED CELL DISTRIBUTION WIDTH 13.7 % (11.6-13.7); WHITE BLOOD COUNT (AUTO) 10.4 K/uL (4.8-10.8)
[2022-11-09 23:16] LABS: ANION GAP 11.8 (8-16); CARBON DIOXIDE 30.3 mmol/L (21-32); CREATININE 0.7 mg/dL (0.6-1.3); POTASSIUM 4.1 mmol/L (3.5-5.1)
[2022-11-09 23:26] LABS: PROTHROMBIN TIME 10.5 secs (10.8-13.4)
[2022-11-09 23:38] VITALS: BP 135/74
--- NOTE | 2022-11-09 23:39 | NUR ---
Patient discharged with v/s stable. Written and verbal after care instructions given and explained. Patient verbalized understanding. Ambulatory with steady gait. All questions addressed prior to discharge. Advised to follow up with PMD.
== END 2022-11-09 23:43 | disposition home or self-care (01) ==
LOC: MED 18:14
DX: R04.0 Epistaxis (principal)
CPT/HCPCS: 36415; 80048; 85025; 85610; 85730; 99283

== ENCOUNTER 2023-11-27 10:27 | Emergency (ER) | payer OTHER ==
[~2023-11-27] VITALS: Ht 165.1 cm; Wt 90.7 kg
[2023-11-27 10:28] VITALS: BP 158/78; PULSE 120; RESP 20; TEMP 98.3; O2SAT 96
[2023-11-27 12:09] LABS: FLU A ANTIGEN negative (NEGATIVE); FLU B ANTIGEN negative (NEGATIVE)
[2023-11-27] MEDS ORDERED: TRAM50TA3 PO (12:22)
[2023-11-27] MEDS ORDERED: ROB PO (12:22)
[2023-11-27] MEDS ORDERED: IBUP-2213 PO (12:22)
[2023-11-27 12:29] VITALS: BP 146/71; PULSE 99; RESP 18; TEMP 97.9; O2SAT 97
== END 2023-11-27 12:29 | disposition home or self-care (01) ==
LOC: MED 10:27
DX: R05.9 Cough, unspecified (principal); Z20.822 Contact with and (suspected) exposure to COVID-19; R50.9 Fever, unspecified; M79.10 Myalgia, unspecified site; Z79.899 Other long term (current) drug therapy
CPT/HCPCS: 71045; 99284